=== PATIENT | female | born 1970 | race Caucasian/White ===

== ENCOUNTER 2019-09-01 10:49 | Emergency (ER) | payer BC ==
[2019-09-01] MEDS ORDERED: Aspirin 81 mg CHEW TAB* 81 MG TAB.CHEW PO ONE (11:08)
--- NOTE | 2019-09-01 11:14 | ED ---
HPI Chest Pain - HPI Summary HPI Summary: This patient is a 49-year-old female with no significant past medical history who presents to the ED with a 1 hour history of midsternal chest pressure and pain which radiated to the right arm as well as to the left scapula. He denies any difficulty breathing. She states she feels she cannot take a deep breath d/ t pain. On palpation of the area, she notes worsening pain to the L lower back - as a muscle pain. States the symptoms after onset have been intermittent, not worse with ambulation or better with rest. Sxs were acute onset while at rest. Sxs of R arm numbness and tingling associated, but denies this currently. denies any diaphoresis, JESSICA, N/V or visual changes. Sxs resolved just [employer], but returned on arrival to the ED Mother had stent placements at age 65yo. No other known family hx. No personal cardiac hx. Denies smoking hx, rare alcohol use. Denies taking any medications. Recently returned yesterday from a long 2 day driving trip from [place]. No hx of DVT, PE. No OCP. - History of Current Complaint Chief Complaint: EDChestPainROMI Time Seen by Provider: 09/01/19 10:59 Hx Obtained From: Patient Onset/Duration: Started Hours Ago Time of Onset: 10:00 Timing: Intermittent, Lasting Minutes Initial Severity: Moderate Current Severity: Mild Pain Intensity: 4 Pain Scale Used: 0-10 Numeric Chest Pain Location: Mid Sternal Chest Pain Radiates: Yes Chest Pain Radiates To:: Arm Character: Tightness Aggravating Factor(s): Nothing Alleviating Factor(s): Nothing Associated Signs and Symptoms: Positive: Negative, Calf Pain/Swelling - R with dorsiflexion - mild, Other: - recent long 2 day trip in car. Negative: Chest Pain, Vision Changes, Anxiety, Recent Stress, Headaches, Numbness, Nausea, Palpitations, Cough - Risk Factors Pulmonary Embolism Risk Factors: Recent Travel - Allergy/Home Medications Allergies/Adverse Reactions: Allergies Allergy/AdvReac Type Severity Reaction Status Date / Time latex Allergy Unknown Verified 05/09/18 12:10 Reaction Details Home Medications: Home Medications Omeprazole CAP (NF) [Prilosec CAP* 20 MG] 20 mg PO DAILY 06/26/18 [History Confirmed 06/26/18] PMH/Surg Hx/FS Hx/Imm Hx Previously Healthy: Yes - Immunization History Hx Pertussis Vaccination: No Immunizations Up to Date: Yes Infectious Disease History: No Infectious Disease History: Denies: Traveled Outside the [place] in Last 30 Days - Social History Occupation: Employed Full-time Lives: With Family Alcohol Use: Rare Hx Substance Use: No Substance Use Type: Reports: None Hx Tobacco Use: No Smoking Status (MU): Never Smoked Tobacco Review of Systems Negative: Fever, Chills, Fatigue, Skin Diaphoresis Negative: Dental Pain Positive: Chest Pain. Negative: Palpitations Negative: Shortness Of Breath, Cough Negative: Abdominal Pain, Vomiting, Diarrhea, Nausea Genitourinary: Negative Positive: no symptoms reported, see HPI Negative: Arthralgia, Myalgia, Decreased ROM, Edema Skin: Negative Negative: Headache, Weakness, Paresthesia, Numbness All Other Systems Reviewed And Are Negative: Yes Physical Exam Triage Information Reviewed: Yes Vital Signs On Initial Exam: Initial Vitals Temp Pulse Resp BP Pulse Ox 97.6 F 72 20 124/87 93 09/01/19 10:52 09/01/19 10:52 09/01/19 10:52 09/01/19 10:52 09/01/19 10:52 Vital Signs Reviewed: Yes Appearance: Positive: Well-Appearing, Well-Nourished Skin: Positive: Warm, Skin Color Reflects Adequate Perfusion Head/Face: Positive: Normal Head/Face Inspection Eyes: Positive: EOMI, LUIS, Conjunctiva Clear Neck: Positive: Supple, No Lymphadenopathy Respiratory/Lung Sounds: Positive: Clear to Auscultation, Breath Sounds Present Cardiovascular: Positive: RRR, Pulses are Symmetrical in both Upper and Lower Extremities. Negative: Leg Edema Left, Leg Edema Right Musculoskeletal: Positive: Normal, Strength/ROM Intact Neurological: Positive: Sensory/Motor Intact, Alert, Oriented to Person Place, Time, Speech Normal Psychiatric: Positive: Normal, Affect/Mood Appropriate AVPU Assessment: Alert Procedures - Sedation Patient Received Moderate/Deep Sedation with Procedure: No Diagnostics - Vital Signs Vital Signs Temp Pulse Resp BP Pulse Ox 09/01/19 10:52 97.6 F 72 20 124/87 93 - Laboratory Result Diagrams: 09/01/19 11:09 09/01/19 11:09 Lab Statement: Any lab studies that have been ordered have been reviewed, and results considered in the medical decision making process. - EKG EKG Cardiac Rate: NL EKG Rhythm: Sinus Rhythm ST Segment: Other - early repol EKG Comparison: Other - no comparisons Chest Pain Course/Dx - Course Course Of Treatment: Patient evaluated for mid sternal chest tightness radiating to the R arm intermittently x 1 hour. Sxs still present. Denies other symptoms related. Labs obtained: WNL. EKG NSR. Rate of 65. No comparisons available. Chest xray: No active cardiopulmonary disease. Dimer negative. HEART SCORE= 2. Low. Risk of MACE of 0.9-1.7%. Troponins: 2 r/o trops negative. Patient is discharged asymptomatic in good condition. Likely MSK however ACS, angina on the differential. Therefore, patient will be referred to cardiology for further workup. Pt dx with atypical chest pain. - Chest Pain Differential Diagnosis/HQI/PQRI: ACS, Angina - Diagnoses Provider Diagnoses: Atypical chest pain Discharge ED - Sign-Out/Discharge Documenting (check all that apply): Patient Departure - Discharge Plan Condition: Stable Disposition: HOME Patient Education Materials: Angina (ED) Referrals: Deana Beard MD [Primary Care Provider] - Additional Instructions: Please follow up with your PCP Ibuprofen 600mg three times daily for continued discomfort - Billing Disposition and Condition Condition: STABLE Disposition: Home - Attestation Statements Provider Attestation: I was available for consult. This patient was seen by the FIDELINA. The patient was not presented to, seen by, or examined by me. Tra Vilchis MD
[2019-09-01 11:22] LABS: ABS Eosinophils 0.2 10^3/ul (0-0.6); ABS Lymphocytes 1.7 10^3/ul (1.0-4.8); ABS Monocytes 0.4 10^3/ul (0-0.8); ABS Neutrophils 2.1 10^3/ul (1.5-7.7); Eosinophil % 4.2 %; Hematocrit 42 % (35-47); Hemoglobin 14.2 g/dL (12.0-16.0); Lymphocyte % 37.8 %; Mean Corpuscular HGB Conc 34 g/dL (31-36); Mean Corpuscular Hemoglobin 31 pg (27-31); Mean Corpuscular Volume 91 fL (80-97); Mean Platelet Volume 7.9 fL (7.4-10.4); Platelet Count 249 10^3/uL (150-450); Red Blood Count 4.58 10^6 /uL (3.70-4.87); Red Cell Distribution Width 13 % (10-15); White Blood Count 4.4 10^3/uL (3.5-10.8)
[2019-09-01 11:30] LABS: INR 0.93 (0.82-1.09)
[2019-09-01 11:38] LABS: Albumin 4.3 g/dL (3.2-5.2); Albumin/Globulin Ratio 1.7 (1-3); BUN/Creatinine Ratio 11.6 (8-20); Calcium 9.7 mg/dL (8.6-10.3); EGFR African American 84.2 (>60); EGFR Non-African American 69.6 (>60); Globulin 2.6 g/dL (2-4); Potassium 4.2 mmol/L (3.5-5.0); Total Bilirubin 1.1 mg/dL (0.2-1.0); Total Protein 6.9 g/dL (6.4-8.9)
[2019-09-01] MEDS ORDERED: Ibuprofen TAB* 600 MG PO ONE (13:00)
[2019-09-01 13:13] LABS: TSH (Thyroid Stimulating Horm) 2.01 mcIU/mL (0.34-5.60)
[2019-09-01 14:44] VITALS: BP 115/80
== END 2019-09-01 14:44 | disposition home or self-care (01) ==
LOC: ED 10:49
DX: R07.89 Other chest pain (principal)
CPT/HCPCS: 36415; 71046; 80053; 84443; 84484; 85025; 85379; 85610; 93005; 99282; A9270-GY

== ENCOUNTER 2019-10-05 12:59 | Emergency (ER) | payer BC ==
--- NOTE | 2019-10-05 13:14 | ED ---
HPI Febrile Illness - HPI Summary HPI Summary: 49 year old F presenting to [facility] with a chief complaint of a fever, headache, body aches, chills, cough, post-nasal drip, and "swollen throat" since 5 days ago. The patient rates the pain 0/10 in severity. Symptoms aggravated by nothing. Symptoms alleviated by nothing. Patient reports taking Tylenol 2 days ago when her fever was 101.9 degrees. The patient was tested for COVID-19 previously which was negative. Medication list reviewed. Allergy list reviewed. - History of Current Complaint Time Seen by Provider: 10/05/19 13:05 Hx Obtained From: Patient Onset/Duration: Started Days Ago Timing: Constant Current Severity: None Pain Intensity: 0 Pain Scale Used: 0-10 Numeric Aggravating Factors: Nothing Alleviating Factors: Nothing - Allergy/Home Medications Allergies/Adverse Reactions: Allergies Allergy/AdvReac Type Severity Reaction Status Date / Time latex Allergy Rash Verified 10/05/19 13:30 lavender (Lavandula Allergy Anaphylatic Verified 10/05/19 13:30 angustifolia) Shock Home Medications: Home Medications NK [No Home Medications Reported] 10/05/19 [History Confirmed 10/05/19] PMH/Surg Hx/FS Hx/Imm Hx Endocrine/Hematology History: Denies: Hx Diabetes Cardiovascular History: Denies: Hx Hypertension - Surgical History Surgical History: Yes Surgery Procedure, Year, and Place: Several in the past. - Family History Known Family History: Positive: Cardiac Disease, Other - Cancer - Social History Alcohol Use: Occasionally Hx Substance Use: No Substance Use Type: Reports: None Hx Tobacco Use: No Smoking Status (MU): Never Smoked Tobacco Review of Systems Positive: Fever, Chills Positive: Nasal Discharge, Other - Swollen throat Positive: Cough Positive: Myalgia Positive: Headache All Other Systems Reviewed And Are Negative: Yes Physical Exam - Summary Physical Exam Summary: Constitutional: Well-developed, Well-nourished, Alert. (-) Distressed Skin: Warm, Dry HENT: Normocephalic; Atraumatic Eyes: Conjunctiva normal Neck: Musculoskeletal ROM normal neck. (-) JVD, (-) Stridor, (-) Nuchal rigidity Cardio: Rhythm regular, rate normal, Heart sounds normal; Intact distal pulses; Radial pulses are 2+ and symmetric. (-) Murmur Pulmonary/Chest wall: Effort normal. (-) Respiratory distress, (-) Wheezes, (-) Rales Abd: Soft, (-) tenderness, (-) Distension, (-) Guarding, (-) Rebound Musculoskeletal: (-) Edema Neuro: Alert, Oriented x3 Psych: Mood and affect Normal Triage Information Reviewed: Yes Vital Signs Reviewed: Yes Procedures - Sedation Patient Received Moderate/Deep Sedation with Procedure: No Diagnostics - Laboratory Lab Statement: Any lab studies that have been ordered have been reviewed, and results considered in the medical decision making process. - Radiology Chest x-ray Radiology Interpretation Completed By: Radiologist Summary of Radiographic Findings: No active cardiopulmonary disease is present. ED physician has reviewed this report. Course/Dx - Course Course Of Treatment: Patient presenting with viral illness. COVID negative. VS here stable, well appearing. Tolerating PO. Lungs CTAB, easy WOB, CXR w/o PNA. No neck pain/nuchal rigidity, headache or other signs of meningismus. States throat feels "swollen" but no POPPY, stridor. No sore throat. Encouraged to take motrin/tylenol PRN, increased PO intake of fluids and return for worsening symptoms. - Diagnoses Provider Diagnoses: URI (upper respiratory infection) Discharge ED - Sign-Out/Discharge Documenting (check all that apply): Patient Departure - Discharge Plan Condition: Stable Disposition: HOME Patient Education Materials: Upper Respiratory Infection (ED) Referrals: Deana Beard MD [Primary Care Provider] - Additional Instructions: You were seen in the emergency department for Flu like symptoms. Please drink lots of fluids including Gatorade and water, take Motrin and Tylenol as needed for aches and pains. Please follow up with your primary care doctor in next 2-3 days and return to emergency department for fever greater than 100.4 for more than 5 days, trouble breathing, chest pain, severe headaches or neck pain, confusion, worsening or concerning symptoms. It was a pleasure taking care of you today. - Billing Disposition and Condition Condition: STABLE Disposition: Home - Attestation Statements Document Initiated by Scribe: Yes Documenting Scribe: Aye Narvaez Provider For Whom Scribe is Documenting (Include Credential): Stevie Keller MD Scribe Attestation: I, Aye Narvaez, scribed for Stevie Keller MD on 10/05/19 at 1528. Scribe Documentation Reviewed: Yes Provider Attestation: The documentation as recorded by the scribe, Aye Narvaez accurately reflects the service I personally performed and the decisions made by me, Stevie Keller MD Status of Scribe Document: Viewed
[2019-10-05 15:30] VITALS: BP 125/80
== END 2019-10-05 15:29 | disposition home or self-care (01) ==
LOC: ED 12:59
DX: J06.9 Acute upper respiratory infection, unspecified (principal); R50.9 Fever, unspecified; R51 Headache; R05 Cough; Z91.040 Latex allergy status
CPT/HCPCS: 71046; 99282